=== PATIENT | male | born 1955 | race Caucasian/White ===

== ENCOUNTER → 2017-11-15 | Outpatient (REF) | payer OTHER ==
[2017-11-15 16:25] LABS: CREATININE FOR GFR 1.46 MG/DL (0.70-1.30); GLOMERULAR FILTRATION RATE 51.9 (>49)
[2017-11-15 16:25] LABS: BLOOD UREA NITROGEN 24 MG/DL (7-18)
== END ==
LOC: M LAB REF 15:42
DX: M16.12 Unilateral primary osteoarthritis, left hip (principal)

== ENCOUNTER → 2020-06-10 | Outpatient (CLI) | payer MEDICARE, BC ==
--- NOTE | 2020-06-15 02:23 | ECWPNPC ---
PATIENT NAME: NEO SINGH : 1955 GENDER: MALE VISIT DATE: 06/10/2020 DISCHARGE DATE: 06/10/20 170 VISIT LOCKED DATE TIME: PHYSICIAN: XIOMARA LLAMAS MD RESOURCE: XIOMARA LLAMAS MD REASON FOR APPOINTMENT 1. PRE SEDATE FOR SPINAL TAP HISTORY OF PRESENT ILLNESS GENERAL: 64-YEAR-OLD MALE PATIENT WITH A HISTORY OF SOME RIGHT LOWER EXTREMITY NEUROLOGICAL CHANGES. HE IS FEELING SOME TINGLING AND SOME UNUSUAL CHANGES OVER THE RIGHT LOWER EXTREMITY. HIS NEUROLOGIST, DR. TOURE REFERRED THE PATIENT HERE FOR A SPINAL TAP TO CONFIRM THE DIAGNOSIS OF MULTIPLE SCLEROSIS. FALL RISK SCREENING: SCREENING :NO FALLS REPORTED IN THE LAST YEAR PAIN SCREENING: PATIENT HAS A COMPLAINT OF ACUTE OR CHRONIC PAIN :NO NURSING NOTE: -. PAIN CENTER INTAKE QUESTIONS: DO YOU HAVE A HISTORY OF MRSA? :NO DO YOU TAKE A BLOOD THINNERS? :NO DO YOU HAVE ANY BLEEDING DISORDERS? :NO ANY NEW NUMBNESS OR WEAKNESS IN YOUR LEGS OR ARMS? :NO ANY PACEMAKER,DEFIBRILLATOR, OR DORSAL COLUMN STIMULATOR? :NO DO YOU HAVE ANY RASHES OR OPEN SORES? :NO ARE YOU ALLERGIC TO IV DYE? :NO ARE YOU DIABETIC? :NO ANY NEW PROBLEMS WITH YOUR MEDICATIONS? :NO HAVE YOU RECEIVED A VACCINE IN THE PAST 30 DAYS? :NO DO YOU PLAN TO RECEIVE A VACCINE IN THE NEXT 21 DAYS? :NO DO YOU NEED ANY PRESCRIPTION? :NO DO YOU TAKE ANY IMMUNOSUPPRESSIVE MEDICATIONS? :YES PATIENT WILL BE STARTING AUBIGO 4 MG IS THERE A CHANCE YOU COULD BE ? :NO ARE YOU BREAST FEEDING? :NO CURRENT MEDICATIONS TAKING DOXAZOSIN MESYLATE 4 MG TABLET 1 TABLET ORALLY ONCE A DAY TAKING LOSARTAN POTASSIUM 50 MG TABLET 1 TABLET ORALLY ONCE A DAY TAKING TRIAMTERENE-HCTZ 37.5-25 MG TABLET 1 TABLET IN THE MORNING ORALLY ONCE A DAY TAKING AUBAGIO 7 MG TABLET 1 TABLET ORALLY ONCE A DAY TAKING ASPIRIN 81 MG TABLET CHEWABLE 1 TABLET ORALLY ONCE A DAY MEDICATION LIST REVIEWED AND RECONCILED WITH THE PATIENT PAST MEDICAL HISTORY MS HYPERTENSION BPH ALLERGIES N.K.D.A. SURGICAL HISTORY COLONSCOPY FAMILY HISTORY FATHER: ALIVE MOTHER: 6 BROTHER(S) , 7 SISTER(S) - HEALTHY. 1 SON(S) , 1 DAUGHTER(S) - HEALTHY. MOTHER AFTER FALL1 BROTHER MEMORY ISSUES DAUGHTER- HAD OVAIRIAN IN THE PAST. SOCIAL HISTORY GENERAL: TOBACCO USE ARE YOU A:NONSMOKER LATEX QUESTIONNAIRE LATEX ALLERGY : HAVE YOU EVER DEVELOPED ANY TYPE OF REACTION AFTER HANDLING LATEX PRODUCTS SUCH RUBBER GLOVES, CONDOMS, DIAPHRAGMS, BALLOONS, SOCKS, OR UNDERWEAR?NO ALCOHOL SCREENING DID YOU HAVE A DRINK CONTAINING ALCOHOL IN THE PAST YEAR?YES HOW OFTEN DID YOU HAVE A DRINK CONTAINING ALCOHOL IN THE PAST YEAR?TWO TO FOUR TIMES A MONTH (2 POINTS) HOW MANY DRINKS DID YOU HAVE ON A TYPICAL DAY WHEN YOU WERE DRINKING IN THE PAST YEAR?5 OR 6 (2 POINTS) HOW OFTEN DID YOU HAVE SIX OR MORE DRINKS ON ONE OCCASION IN THE PAST YEAR?NEVER (0 POINTS) POINTS4 INTERPRETATIONPOSITIVE RECREATIONAL DRUG USE DRUG USE?NO PATIENT DENIES ABUSE OR MISSUSED OF ANY MEDICATION DENIES PATIENT DENIES USE OF ANY ILLEGAL SUBSTANCE INCLUDING MARIJUANA OR COCAINE DENIES DOMESTIC VIOLENCE DO YOU FEEL SAFE IN YOUR ENVIRONMENT?YES PAIN CLINIC PFS, CLERGY, PUBLIC HEALTH REFERRALS HAS THE PATIENT BEEN EDUCATED REGARDING HIS/HER PLAN OF CARE?YES HAS THE PATIENT BEEN EDUCATED REGARDING PAIN, THE RISK FOR PAIN, THE IMPORTANCE OF EFFECTIVE PAIN MANAGEMENT, AND THE PAIN ASSESSMENT PROCESS?YES ADVANCE DIRECTIVE ADVANCE DIRECTIVE DISCUSSED WITH PATIENT:YES - [facility] HOSPITALIZATION/MAJOR DIAGNOSTIC PROCEDURE DENIES PAST HOSPITALIZATION REVIEW OF SYSTEMS GLAUCOMA: NOTHYROID DISEASE: NOHYPERTENSION: NOHEART DISEASE: NOLUNG DISEASE: NODIABETES: NOGI DISEASE: NO LIVER DISEASE: FATTY LIVERKIDNEY DISEASE: NOSTERIOD USE: NONEUROLOGICAL DISEASE: NOBACK PROBLEMS: NOEXTREMITIES: YES, NUMBNESS AND TINGLINGGENITOURINARY: NOBLEEDING DISORDER: NOASA CLASS: [id number] CLASS: II. VITAL SIGNS WT 203 LBS, HT 69 IN, BMI 29.97 INDEX, BP 143/80 MM HG, HR 74 /MIN, RR 18 /MIN, TEMP 97.7 F, OXYGEN SAT % 97%, SAFE IN ENV? (Y/N) YES, NA INITIALS SC 15:13, REVIEWED BY: LATASHA ALMEIDA RN. EXAMINATION GENERAL EXAMINATION: THE PATIENT IS ALERT, ORIENTED TIMES THREE AND COOPERATIVE. LUNGS ARE CLEAR TO AUSCULTATION. HEART SHOWS REGULAR RHYTHM, NO MURMURS AND NO GALLOPS. THE RIGHT LEG IS WEAKER THAN THE LEFT LEG ON FLEXION AND EXTENSION. THE PATIENT IS LIMPING FROM THE RIGHT LEG WITH INSTABILITY STANDING. IN THE CHART, THERE IS THE ORDER FROM THE REFERRING PHYSICIAN AND SOME LABS. THERE IS AN MRI OF THE CERVICAL SPINE. ASSESSMENTS NEUROLOGICAL SYMPTOMS - R29.90 (PRIMARY) MULTIPLE SCLEROSIS - G35, PROTOCOL TREATMENT NEUROLOGICAL SYMPTOMS MEDICATION: VERSED 1MG IV (MIDAZOLAM) (ORDERED FOR 07/11/2020) MEDICATION: FENTANYL CITRATE 50MCG IV (ORDERED FOR 07/11/2020) OXYGEN AT 2 LITERS PER NASAL CANNULA (ORDERED FOR 07/11/2020) IV LACTATED RINGER'S AT KVO (ORDERED FOR 07/11/2020) CLINICAL NOTES: I DISCUSSED ALTERNATIVES WITH MR. SINGH. WE AGREE ON MOVING FORWARD WITH THE SPINAL TAP WITH IV SEDATION DUE TO ANXIETY AND DISCOMFORT ASSOCIATED WITH THE PROCEDURE. I EXPLAINED THE RISKS ASSOCIATED WITH THE PROCEDURE TO THE PATIENT INCLUDING BUT NOT LIMITED TO POST SPINAL HEADACHES. I WOULD LIKE TO SEE THE RESULTS OF THE THORACIC AND LUMBAR MRI BEFORE BOOKING THE PATIENT. THE PATIENT REPORTS UNDERSTANDING AND AGREES. I, NATALYA MEIER, DOCUMENTED THE ABOVE INFORMATION ACTING A SCRIBE FOR DR. LLAMAS. I HAVE REVIEWED THE ABOVE DOCUMENT, WRITTEN BY NATALYA MEIER, REAL ESTATE TRANSACTION MANAGER, AND I VERIFY THAT IT IS ACCURATE. PROCEDURE CODES FA211 ESTABILISHED PATIENT NEW [facility] CHARGE 90489 OFFICE/OUTPATIENT VISIT EST DISPOSITION & COMMUNICATION FOLLOW UP DO NOT BOOK YET-NEED MRIS (REASON: SPINAL TAP) ELECTRONICALLY SIGNED BY XIOMARA LLAMAS MD, MD ON 06/14/2020 AT 04:54 PM EST DISCLAIMER : THIS IS A VISIT SUMMARY EXTRACTED FROM THE [employer] CHART. IT IS NOT A COPY OF THE [employer] PROGRESS NOTE. CROTES
== END ==
LOC: M PAIN 15:00
PROVIDERS: ATTEND Anesthesiology
DX: R29.90 Unspecified symptoms and signs involving the nervous system (principal); G35 Multiple sclerosis; I10 Essential (primary) hypertension; N40.0 Benign prostatic hyperplasia without lower urinary tract symptoms; Z79.82 Long term (current) use of aspirin; Z79.899 Other long term (current) drug therapy

== ENCOUNTER → 2020-06-23 | Outpatient (CLI) | payer MEDICARE, BC | LOC: M LABSMTC 10:48 | PROVIDERS: ATTEND Anesthesiology | DX: Z20.822 Contact with and (suspected) exposure to COVID-19 (principal) ==

== ENCOUNTER → 2020-06-28 | Outpatient (CLI) | payer MEDICARE, BC ==
[~2020-06-28] MED LIST: LIDOCAINE 1% SDV 30ML VIAL As Ordered ONE; MIDAZOLAM INJ 2MG/2ML VIAL (J2250 PER 1MG) As Ordered ONE; fentaNYL 100 MCG/2 ML INJECTION (J3010) As Ordered ONE
[2020-06-28 11:24] LABS: APPEARANCE, CSF CLEAR (CLEAR); COLOR, CSF COLORLESS (COLORLESS); CSF TUBE# CELL CNT TUBE 3
[2020-06-28 11:53] LABS: CSF TUBE# GLU TUBE 1; CSF TUBE# TP TUBE 1; GLUCOSE CSF 54 MG/DL (40-75); TOTAL PROTEIN,CSF 49 MG/DL (15-45)
--- NOTE | 2020-06-30 00:34 | ECWPNPC ---
PATIENT NAME: NEO SINGH : 1955 GENDER: MALE VISIT DATE: 06/28/2020 DISCHARGE DATE: 06/28/20 1121 VISIT LOCKED DATE TIME: PHYSICIAN: XIOMARA LLAMAS MD RESOURCE: XIOMARA LLAMAS MD REASON FOR APPOINTMENT 1. SPINAL TAP HISTORY OF PRESENT ILLNESS GENERAL: -. FALL RISK SCREENING: SCREENING :NO FALLS REPORTED IN THE LAST YEAR PAIN SCREENING: PATIENT HAS A COMPLAINT OF ACUTE OR CHRONIC PAIN :NO PAIN CENTER INTAKE QUESTIONS: DO YOU HAVE A HISTORY OF MRSA? :NO DO YOU TAKE A BLOOD THINNERS? :NO DO YOU HAVE ANY BLEEDING DISORDERS? :NO ANY NEW NUMBNESS OR WEAKNESS IN YOUR LEGS OR ARMS? :NO ANY PACEMAKER,DEFIBRILLATOR, OR DORSAL COLUMN STIMULATOR? :NO DO YOU HAVE ANY RASHES OR OPEN SORES? :NO ARE YOU ALLERGIC TO IV DYE? :NO ARE YOU DIABETIC? :NO ANY NEW PROBLEMS WITH YOUR MEDICATIONS? :NO HAVE YOU RECEIVED A VACCINE IN THE PAST 30 DAYS? :NO DO YOU PLAN TO RECEIVE A VACCINE IN THE NEXT 21 DAYS? :NO DO YOU NEED ANY PRESCRIPTION? :NO DO YOU TAKE ANY IMMUNOSUPPRESSIVE MEDICATIONS? :YES AUBIGO 4 MG PO DAILY ANY HISTORY OF SEIZURES? :NO ANY HISTORY OF CARDIAC ISSUES OR EVENTS? :NO DO YOU HAVE SLEEP APNEA? :NO ANY RECENT HEAD INJURY? :NO DO YOU HAVE ANY NEW INFECTIONS? :NO IS THERE A CHANCE YOU COULD BE ? :NO ARE YOU BREAST FEEDING? :NO WHEN DID YOU LAST EAT? : ---.06/27/2020 1900 WHEN DID YOU LAST DRINK? : ---.06/28/2020 0600 WHAT DID YOU LAST DRINK? : SIPS OF WATER WITH MEDS NAME OF PERSON DRIVING YOU HOME? : TRE () [phone] DO YOU HAVE ANY OTHER QUESTIONS OR CONCERNS? : NO CURRENT MEDICATIONS TAKING DOXAZOSIN MESYLATE 4 MG TABLET 1 TABLET ORALLY ONCE A DAY TAKING LOSARTAN POTASSIUM 50 MG TABLET 1 TABLET ORALLY ONCE A DAY TAKING TRIAMTERENE-HCTZ 37.5-25 MG TABLET 1 TABLET IN THE MORNING ORALLY ONCE A DAY TAKING AUBAGIO 7 MG TABLET 1 TABLET ORALLY ONCE A DAY, NOTES: 06/28/2020 0530 TAKING ASPIRIN 81 MG TABLET CHEWABLE 1 TABLET ORALLY ONCE A DAY MEDICATION LIST REVIEWED AND RECONCILED WITH THE PATIENT PAST MEDICAL HISTORY MS HYPERTENSION BPH ALLERGIES N.K.D.A. SURGICAL HISTORY COLONSCOPY DEVIATED SEPTUM FAMILY HISTORY FATHER: ALIVE MOTHER: 6 BROTHER(S) , 7 SISTER(S) - HEALTHY. 1 SON(S) , 1 DAUGHTER(S) - HEALTHY. MOTHER AFTER BROTHER MEMORY ISSUES DAUGHTER- HAD OVAIRIAN IN THE PAST. SOCIAL HISTORY GENERAL: TOBACCO USE ARE YOU A:NONSMOKER LATEX QUESTIONNAIRE LATEX ALLERGY : HAVE YOU EVER DEVELOPED ANY TYPE OF REACTION AFTER HANDLING LATEX PRODUCTS SUCH RUBBER GLOVES, CONDOMS, DIAPHRAGMS, BALLOONS, SOCKS, OR UNDERWEAR?NO LATEX ALLERGY : HAVE YOU EVER DEVELOPED ANY TYPE OF REACTION DURING OR AFTER DENTAL APPOINTMENT, VAGINAL/RECTAL EXAMINATION, SURGICAL PROCEDURE, OR ANY OTHER EXPOSURE?NO DATE ASKED : 06/25/2020 ALCOHOL USE: YES, INFREQUENTLY, MORE IN SUMMERTIME, LESS IN WINTERTIME.. ALCOHOL SCREENING DID YOU HAVE A DRINK CONTAINING ALCOHOL IN THE PAST YEAR?YES HOW OFTEN DID YOU HAVE SIX OR MORE DRINKS ON ONE OCCASION IN THE PAST YEAR?NEVER (0 POINTS) HOW MANY DRINKS DID YOU HAVE ON A TYPICAL DAY WHEN YOU WERE DRINKING IN THE PAST YEAR?5 OR 6 (2 POINTS) HOW OFTEN DID YOU HAVE A DRINK CONTAINING ALCOHOL IN THE PAST YEAR?TWO TO FOUR TIMES A MONTH (2 POINTS) POINTS4 INTERPRETATIONPOSITIVE RECREATIONAL DRUG USE DRUG USE?NO PATIENT DENIES ABUSE OR MISSUSED OF ANY MEDICATION DENIES PATIENT DENIES USE OF ANY ILLEGAL SUBSTANCE INCLUDING MARIJUANA OR COCAINE DENIES RESTORATIONIST [id number] CONFUCIANIST NO SHINTO BELIEFS THAT WOULD IMPACT HEALTH CARE. LANGUAGE LANGUAGES SPOKEN:UPPER SORBIAN EDUCATION LEVEL OF EDUCATION:FINISHED COLLEGE LEARNING BARRIERS / SPECIAL NEEDS BARRIERS TO LEARNING?NO HEARING IMPAIRED?NO VISION IMPAIRED?YES :CORRECTIVE LENSES COGNITIVELY IMPAIRED?NO READINESS TO LEARN?YES LEARNING PREFERENCES?NO LEARNING CAPABILITIES PRESENT?YES EMOTIONAL BARRIERS?NO SPECIAL DEVICES?NO CONTACT CENTER ANALYST NEEDED?NO DOMESTIC VIOLENCE DO YOU FEEL SAFE IN YOUR ENVIRONMENT?YES MARITAL STATUS: . - HAS THE PATIENT BEEN EDUCATED REGARDING HIS/HER PLAN OF CARE?YES HAS THE PATIENT BEEN EDUCATED REGARDING PAIN, THE RISK FOR PAIN, THE IMPORTANCE OF EFFECTIVE PAIN MANAGEMENT, AND THE PAIN ASSESSMENT PROCESS?YES ADVANCE DIRECTIVE ADVANCE DIRECTIVE DISCUSSED WITH PATIENT:YES - [facility] HOSPITALIZATION/MAJOR DIAGNOSTIC PROCEDURE DENIES PAST HOSPITALIZATION VITAL SIGNS WT 203 LBS, HT 69 IN, BMI 29.97 INDEX, BP 123/71 MM HG, HR 81 /MIN, RR 18 /MIN, TEMP 97.1 F, OXYGEN SAT % 95%, SAFE IN ENV? (Y/N) YES, NA INITIALS AW 0856, REVIEWED BY: JOSÉ LUIS. EXAMINATION GENERAL EXAMINATION: A HISTORY AND PHYSICAL EXAM ON THE PATIENT WAS DONE ON 06/10/2020(DATE OF ORIGINAL ASSESSMENT) IN PREPARATION OF SURGERY/PROCEDURE. I HAVE NOW REASSESSED THIS PATIENT'S HEALTH STATUS AND PERFORMED AN UPDATED EXAM TODAY. ALL CHANGES IN THE PATIENT'S HISTORY, PHYSICAL EXAM, PRE-EXISTING CONDITONS, AND INDICATIONS/CONTRAINDICATIONS TO THE PLANNED PROCEDURE AND ANESTHESIA ARE DOCUMENTED AND EVALUATED BELOW. I ATTEST TO THE ADEQUACY AND APPROPRIATENESS OF MY ASSESSMENT, AND CONFIRM THE NECESSITY FOR THE PLANNED PROCEDURE. THE PATIENT IS ALERT, ORIENTED TIMES THREE AND COOPERATIVE. LUNGS ARE CLEAR TO AUSCULTATION. HEART SHOWS REGULAR RHYTHM, NO MURMURS AND NO GALLOPS. ASSESSMENTS MULTIPLE SCLEROSIS - G35 (PRIMARY), PROTOCOL NEUROLOGICAL SYMPTOMS - R29.90 TREATMENT NEUROLOGICAL SYMPTOMS COMPLETION OF PROCEDURAL VISIT WHEN MEETS CRITERIASTEVEN LIM 06/28/2020 11:46:29 AM > CRITERIA MET MEDICATION: VERSED 1MG IV (MIDAZOLAM)JOSEPH ZELAYA 06/28/2020 9:31:19 AM > 1. LOT # [id number] . 09/2022 2. LOT # [id number] 09/2022 TERRY CAMEJO 06/28/2020 9:32:50 AM > VERIFIED DILEONANATALYA FARLEY 06/28/2020 10:28:49 AM - SECOND DOSE ORDERED, VERIFIED WITH JOSEPH JEAN 06/28/2020 10:45:54 AM > 1MG GIVEN AT 1016, 1 MG GIVEN AT 1029 FOR A TOTAL OF 2MGS MEDICATION: FENTANYL CITRATE 50MCG IV JOSEPH ZELAYA 06/28/2020 9:32:33 AM > 1. LOT # [id number] . 12/2021 2. LOT # [id number] . 01/2022 TERRY CAMEJO 06/28/2020 9:33:40 AM > VERIFIED JOSEPH ZELAYA 06/28/2020 10:46:31 AM > 50MCG GIVE AT 1017 OXYGEN AT 2 LITERS PER NASAL CANNULASTEVEN LIM 06/28/2020 11:45:05 AM > O2 2 L NC ON AT 0948, OFF AT 1045 IV LACTATED RINGER'S AT JOSEPH ERYES 06/28/2020 9:17:37 AM > IV STARTED ON 2ND ATTEMPT WITH #20G IN RIGHT HAND. 1ST ATTEMPT UNABLE TO THREAD CATHETER. 2ND ATTEMPT RL INFUSING WITHOUT REDNESS OR SWELLING. PT TOLERATED WELL. STEVEN LIM 06/28/2020 11:45:33 AM > LR 400 CC TOTAL INFUSED OTHERS NOTES: 06/25/20 PAT COMPLETED. [employer] ANALYTICS DEVELOPER. PROCEDURES PAIN NURSING RECORD PROCEDURE IN ROOM 0946, PHYSICIAN IN ROOM 1015, START 1029, FINISH 1039, PHYSICIAN OUT OF ROOM 1042, OUT OF ROOM 1052, ECG NORMAL SINUS, PATIENT SHIELDED YES, SAFETY STRAP YES, PREP BETADINE BY DR LLAMAS, DRESSING TEGADERM BY DR LLAMAS LOC: 1. ALERT, ORIENTED, , STEVEN LIM 06/28/2020 10:04:50 AM > RESP: 1. REGULAR, NO DYSPNEA, STEVEN LIM 06/28/2020 10:05:00 AM > COLOR: 1. PINK, STEVEN LIM 06/28/2020 10:05:14 AM > SKIN: 1. WARM, DRY, STEVEN LIM 06/28/2020 10:05:25 AM > POSITION: 3. LATERAL LEFT, STEVEN LIM 06/28/2020 10:05:43 AM > VITALS: 0948- 117/66 ,56, 16, 94% O2 2L 0954- 110/67, 55, 16, 95% 2L O2 0959- 110/68, 58, 16, 95% 2L O2 1004- 107/69, 58, 16, 95% )2 2L 1009- 108/70, 56, 16, 96% O2 2L 1014 - 110/70, HR 55, 16, 96 2L 02 1019 - 114/71, HR60, 16, 94% O2 2L 1024- 109/67, HR56, 14, 94% O2 2L 1029 - 108/65, HR58, 14, 93% O2 2L 1034 - 110/59, HR58, 14, 93% O2 2L 1039- 106/56, HR 56, 14, 93% O2 2L 1115 EXIT VITALS 123/75, HR61, 95%, R16 ENTERED BY JOSÉ LUIS LIM RN COMPLETION OF PROCEDURE APPOINTMENT: POST PAIN 0, DRESSING SITE DRY AND INTACT PLACED BY DR LLAMAS MEDIAL LOWER BACK, IV DISCONTINUED, SITE CLEAR, CATHETER INTACT, GAIT STEADY, TEACHING COMPLETED, PATIENT ACKNOWLEDGES UNDERSTANDING YES PATIENT STATES UNDERSTANDING OF D/C INSTRUCTIONS, PROCEDURE APPOINTMENT COMPLETED AT 1117 BY: David LIM RN PRE PROCEDURE DIAGNOSIS NEUROLOGICAL SYMPTOMS,RULE OUT MULTIPLE SCLEROSIS PROCEDURE SPINAL TAP PRE PROCEDURE NOTE THE PATIENT HAS A HISTORY OF NEUROLOGICAL SYMPTOMS. THE PATIENT WAS REFERRED HERE BY DR. TOURE FOR A SPINAL TAP TO RULE OUT MULTIPLE SCLEROSIS. THE PATIENT WAS INTERVIEWED, EXAMINED AND TREATMENT QUESTIONNAIRES REVIEWED. THE PROCEDURE, RISKS AND BENEFITS WERE DISCUSSED WITH THE PATIENT. THE PATIENT WOULD LIKE TO MOVE FORWARD WITH IV SEDATION DUE TO ANXIETY AND DISCOMFORT ASSOCIATED WITH THE PROCEDURE. THE PATIENT DENIES UNEXPLAINABLE, WEIGHT LOSS, FEVER, CHILLS, OR CHANGES IN URINARY OR BOWEL CONTROL. THE PATIENT IS COVID-19 NEGATIVE DESCRIPTION OF PROCEDURE AFTER CONSENT WAS TAKEN, THE PATIENT WAS BROUGHT TO THE PROCEDURE ROOM AND PLACED IN THE LEFT LATERAL POSITION. THE LUMBOSACRAL AREA WAS CLEANED WITH BETADINE SOLUTION AND DRAPED ASEPTICALLY. THE PROCEDURE WAS DONE UNDER STERILE CONDITIONS. A TIMEOUT WAS PERFORMED WHERE LATERALITY AND THE SITE OF THE PROCEDURE WERE CHECKED AND CONFIRMED WITH EVERYONE IN THE ROOM. LOCAL INFILTRATE 1 % LIDOCAINE WAS USED TO NUMB THE SKIN AND SUBCUTANEOUS TISSUE BELOW IT AT THE APPROXIMATELY THE L4-L5 INTERSPACE. A 22-GAUGE QUINCKE NEEDLE WAS ADVANCED UNTIL THE DURA WAS FELT AND CSF WAS FREE-FLOWING. THERE WAS NO BLOOD RETURN ENCOUNTERED. NO PARESTHESIA WAS ENCOUNTERED. OPENING PRESSURE WAS MEASURED AT 15 CM OF WATER. 4 VIALS OF 3 ML OF CSF WAS COLLECTED. CSF WAS CLEAR. CSF WAS SENT FOR STUDIES ORDERED BY THE REFERRING PHYSICIAN. VITAL SIGNS WERE STABLE. THERE WERE NO COMPLICATIONS. ESTIMATED BLOOD LOSS WAS LESS THAN 5 ML. THE PATIENT WAS SENT TO THE RECOVERY ROOM WHERE HE WAS MOVING HIS EXTREMITIES AND DOING WELL. THE PATIENT RECEIVED VERSED 2 MG AND FENTANYL 50 MCG IV IN DIVIDED DOSES. FACE TO FACE START TIME: 1016 FACE TO FACE END TIME: 1041 TOTAL FACE TO FACE TIME: 25 MINUTES POST PROCEDURE NOTE I DISCUSSED THE PROCEDURE WITH THE PATIENT. I WILL SEND THE CSF FOR STUDIES. THE PATIENT WILL FOLLOW UP WITH DR. TOURE. THE PATIENT WILL CALL OUR OFFICE NEEDED. I, NATALYA MEIER, DOCUMENTED THE ABOVE INFORMATION ACTING A SCRIBE FOR DR. LLAMAS. I HAVE REVIEWED THE ABOVE DOCUMENT, WRITTEN BY KEVAN GAN, AND I VERIFY THAT IT IS ACCURATE. PROCEDURE CODES 90001 SPINAL FLUID TAP DIAGNOSTIC 79724 MOD SED SAME PHYS/QHP 5/>YRS 99744 MOD SED SAME PHYS/QHP EA DISPOSITION & COMMUNICATION FOLLOW UP FOLLOW UP WITH NEUROLOGIST (REASON: CALL OUR OFFICE IF NEEDED) ELECTRONICALLY SIGNED BY XIOMARA LLAMAS MD, MD ON 06/29/2020 AT 01:48 PM EST DISCLAIMER : THIS IS A VISIT SUMMARY EXTRACTED FROM THE [employer] CHART. IT IS NOT A COPY OF THE [employer] PROGRESS NOTE. CORTES
== END ==
LOC: M PAIN 08:00
PROVIDERS: ATTEND Anesthesiology
DX: G35 Multiple sclerosis (principal); R29.90 Unspecified symptoms and signs involving the nervous system; Z79.82 Long term (current) use of aspirin; Z79.899 Other long term (current) drug therapy
CPT/HCPCS: 36415; 62270; 82784; 82945; 84157; 87070; 87102; 87205; 87252; 87483; 88108; 88313; 89050; 99152; 99153; J2250; J3010

== ENCOUNTER → 2020-06-28 | Outpatient (CLI) | payer MEDICARE, BC | LOC: M LAB 08:28 | PROVIDERS: ATTEND Psychiatry & Neurology Neurology | DX: G35 Multiple sclerosis (principal) ==

== ENCOUNTER → 2021-12-21 | Outpatient (CLI) | payer MEDICARE, BC ==
[~2021-12-21] MED LIST changes: +ISOVUE-300 61% 50ML VIAL As Ordered ONE; +LIDOCAINE 1% MDV 20ML VIAL As Ordered ONE; -LIDOCAINE 1% SDV 30ML VIAL As Ordered ONE; -MIDAZOLAM INJ 2MG/2ML VIAL (J2250 PER 1MG) As Ordered ONE; -fentaNYL 100 MCG/2 ML INJECTION (J3010) As Ordered ONE; +methylPREDNISolone SUSP 40MG/ML 1ML VIAL (DEPO MEDROL) As Ordered ONE
== END ==
LOC: M RADPRO 11:07
PROVIDERS: ATTEND Physician Assistant Surgical
DX: M16.11 Unilateral primary osteoarthritis, right hip (principal)
CPT/HCPCS: 20610; 76000; J1030; Q9967